=== PATIENT | female | born 1935 ===

== ENCOUNTER 2017-12-30 10:28 | Emergency (ER) | payer MEDICARE, OTHER ==
[2017-12-30 10:42] VITALS: O2SAT 98
[2017-12-30 10:43] VITALS: BMI 23.4
--- NOTE | 2017-12-30 11:22 | ED PDOC ---
HPI: Dental Pain/Injury Time Seen by Provider: 12/30/17 11:05 Chief Complaint (Nursing): Dental Pain Chief Complaint (Provider): Toothache History Per: Patient, Family History/Exam Limitations: no limitations Onset/Duration Of Symptoms: Days (four) Current Symptoms Are (Timing): Still Present Severity: Mild Dental: 1 - upper teeth #1,2 & 3 Description Of Pain/Injury (Context): Pt complains of dental pain in location of teeth 1, 2 and 3; Quality: Sharp Additional History Per: Patient, Family Past Medical History Reviewed: Historical Data, Nursing Documentation, Vital Signs Vital Signs: Last Vital Signs Temp 98.6 F 12/30/17 10:42 Pulse 61 12/30/17 10:42 Resp 16 12/30/17 10:42 BP 149/73 12/30/17 10:42 Pulse Ox 98 12/30/17 10:42 - Medical History PMH: HTN, Hypercholesterolemia Denies: Chronic Kidney Disease - Surgical History Surgical History: Appendectomy, Tonsillectomy - Family History Family History: States: Unknown Family Hx - Immunization History Hx Tetanus Toxoid Vaccination: No Hx Influenza Vaccination: Yes Hx Pneumococcal Vaccination: No - Home Medications Home Medications: Ambulatory Orders Medication Instructions Recorded Oseltamivir Phosphate [Tamiflu] 75 mg PO Q12H #9 cap 09/16/14 Sulfamethoxazole/Trimethopri 1 tab PO BID #9 tab 09/16/14 [Bactrim Ds 800 mg-160 mg] Aspirin [Ecotrin] 81 mg PO DAILY 08/14/17 Atorvastatin Calcium 10 mg PO DAILY 08/14/17 Cholecalciferol (Vitamin D3) 1,000 unit PO DAILY 08/14/17 [Vitamin D3] Folic Acid 1 mg PO DAILY 08/14/17 Losartan Potassium 25 mg PO DAILY 08/14/17 Metoprolol Tartrate [Lopressor] 50 mg PO BID 08/14/17 Omeprazole 40 mg PO DAILY 08/14/17 Acetaminophen [Tylenol 325mg tab] 975 mg PO Q8 tab 08/23/17 Apixaban [Eliquis] 5 mg PO BID tab 08/23/17 Benzocaine/Menthol [Cepacol Sore 1 ezekiel MT Q3 ezekiel 08/23/17 Throat] Bisacodyl [Dulcolax] 10 mg PO DAILY ect 08/23/17 Docusate [Colace] 100 mg PO BID cap 08/23/17 Famotidine [Pepcid] 20 mg PO BID tab 08/23/17 Megestrol Acetate [Megace] 400 mg PO DAILY cup 08/23/17 Polyethylene Glycol 3350 [Miralax] 17 gm PO DAILY packet 08/23/17 Potassium Chloride [K-Dur 20 mEq 40 meq PO DAILY tab 08/23/17 ER Tab] diltiaZEM [Cardizem] 60 mg PO BID tab 08/23/17 Acetaminophen [Acetaminophen 8 650 mg PO TID #100 tablet.er 12/30/17 Hour] Ibuprofen [Motrin] 400 mg PO QID #100 tab 12/30/17 Lidocaine 2% Viscous 5 ml MM PRN PRN #100 ml 12/30/17 - Allergies Allergies/Adverse Reactions: Allergies Allergy/AdvReac Type Severity Reaction Status Date / Time No Known Allergies Allergy Verified 12/30/17 10:50 Review of Systems ROS Statement: Except As Marked, All Systems Reviewed And Found Negative Constitutional: Negative for: Fever ENT: Positive for: Mouth Pain Physical Exam - Reviewed Nursing Documentation Reviewed: Yes Vital Signs Reviewed: Yes - Physical Exam Appears: Positive for: Well, Non-toxic Head Exam: Positive for: ATRAUMATIC, NORMAL INSPECTION, NORMOCEPHALIC Skin: Positive for: Normal Color, Warm, Dry ENT: Positive for: Other (teeth 1, 2 and 3 are intact without fracture, abscess or infection; no caries noted on visual inspection) Cardiovascular/Chest: Positive for: Regular Rate, Rhythm. Negative for: Edema, Gallop, Murmur, Bradycardia, Tachycardia Respiratory: Positive for: Normal Breath Sounds. Negative for: Decreased Breath Sounds, Crackles, Rales, Rhonchi, Stridor, Wheezing, Respiratory Distress Pulses-Carotid (L): 2+ Pulses-Carotid (R): 2+ - ECG O2 Sat by Pulse Oximetry: 98 Medical Decision Making Medical Decision Making: pt has no PMD pt has no dentist will treat for pain in ED and recommend course that includes a follow up at the clinic and dental office Disposition - Clinical Impression Clinical Impression: Tooth ache - Patient ED Disposition Is Patient to be Admitted: No Doctor Will See Patient In The: Office Counseled Patient/Family Regarding: Studies Performed, Diagnosis, Need For Followup, Rx Given - Disposition Referrals: Harini Wang DMD [Staff Provider] - Napoleon Walker, NORMAN [Doctor Dental Medicine] - Maxwell Jacinto DDS [Doctor Dental Surgery] - Disposition: Routine/Home Disposition Time: 11:28 Condition: GOOD Prescriptions: Acetaminophen [Acetaminophen 8 Hour] 650 mg PO TID #100 tablet.er Ibuprofen [Motrin] 400 mg PO QID #100 tab Lidocaine 2% Viscous 5 ml MM PRN PRN #100 ml PRN Reason: Pain, Mild (1-3) Instructions: Dental Pain (DC), Dental Pain Forms: [facility] (Belizean), [facility] (Czech) Print Language: [id number]
[2017-12-30 12:25] VITALS: BP 142/70; PULSE 64; RESP 18; TEMP 98
== END 2017-12-30 12:18 | disposition home or self-care (01) ==
LOC: H.ER 10:28
DX: K08.89 Other specified disorders of teeth and supporting structures (principal)